=== PATIENT | female | born 1995 | race Caucasian/White ===

== ENCOUNTER → 2019-02-10 14:02 | Outpatient (CLI) | payer OTHER, SELFPAY ==
[2019-02-10 14:31] LABS: Hematocrit 43.7 % (36-46); Hemoglobin 14.4 g/dL (12.0-16.0); Mean Corpuscular HGB Conc 32.8 % (30-36); Mean Corpuscular Hemoglobin 29.9 PG (26-34); Platelet Count 277 X10^3/uL (150-400); Red Cell Distribution Width 13.2 % (11.6-14.8); White Blood Cell Count 6.7 X10^3/uL (4.5-11.0)
[2019-02-10 15:21] LABS: Alanine Aminotransferase 36 IU/L (9-52); Albumin 4.4 g/dL (3.5-5.0); Albumin Globulin Ratio 1.2 (1.0-2.8); Alkaline Phosphatase 64 U/L (38-126); Aspartate Aminotransferase 25 IU/L (14-36); BUN Creatinine Ratio 14.3 (6-22); Bilirubin Total 0.7 mg/dL (0.2-1.3); Blood Urea Nitrogen 10 mg/dL (7-17); Calcium 9.5 mg/dL (8.4-10.2); Carbon Dioxide 27 mmol/L (22-32); Chloride 101 mmol/L (98-107); Estimated Glomerular Filt Rate > 60.0 mL/min (>60); Globulin 3.7 g/dL (1.7-4.1); Glucose 90 mg/dL (70-100); HEMOLYSIS < 15 (0-50); Potassium 3.8 mmol/L (3.4-5.1); Sodium 137 mmol/L (137-145); Total Protein 8.1 g/dL (6.3-8.2)
[2019-02-10 16:05] LABS: TSH w/ Reflex to FT4 1.02 uIU/mL (0.47-4.68)
== END ==
PROVIDERS: Visit Provider Nurse Practitioner Family
DX: Z00.00 Encounter for general adult medical examination without abnormal findings (principal); F41.9 Anxiety disorder, unspecified
CPT/HCPCS: 36415; 80053; 84443; 85027

== ENCOUNTER → 2019-03-21 12:23 | Outpatient (CLI) | payer OTHER, SELFPAY ==
[2019-03-21 15:11] LABS: Urine N gonorrhoeae NOT DETECTED
[2019-03-21 15:15] LABS: Hepatitis B Surface Antigen NEGATIVE s/c (NEGATIVE)
[2019-03-21 15:18] LABS: Urine Chlamydia NOT DETECTED
[2019-03-21 15:33] LABS: HIV 1 and 2 Antibody NEGATIVE (NEGATIVE); Hep C Virus Ab w/Reflex Quant NEGATIVE s/c (NEGATIVE)
[2019-03-23 13:08] LABS: RPR Screen Nonreactive (Nonreactive)
[2019-03-23 13:33] LABS: HSV 1 IgM Screen Negative (Negative); HSV 2 IgM Screen Negative (Negative)
== END ==
PROVIDERS: Visit Provider Nurse Practitioner Family
DX: Z20.2 Contact with and (suspected) exposure to infections with a predominantly sexual mode of transmission (principal)
CPT/HCPCS: 36415; 86592; 86695; 86696; 86703; 86803; 87340; 87491; 87591

== ENCOUNTER → 2020-04-04 10:48 | Outpatient (CLI) | payer OTHER, SELFPAY ==
--- NOTE | 2020-04-04 10:49 | DI.US.S_ITS ---
LIMITED ULTRASOUND OF LEFT BREAST: 04/04/2020 CLINICAL: Focal left breast pain. Mother diagnosed with breast cancer in her 20s, in her 30s. Baseline exam. No prior exams were available for comparison. Real-time ultrasound of the left breast 6:30-9:30 o'clock region was performed. Zimmerman scale images of the real-time examination were reviewed. No significant abnormalities were seen sonographically in the left breast in the region of diffuse pain. IMPRESSION: NEGATIVE There is no sonographic evidence of malignancy. The patient may qualify for screening mammogram at less than age 40 given family history. The patient may also qualify for genetic testing and screening breast MRI. Recommend clinical risk stratification. Exam findings were conveyed to the patient by the structural welder. Patient was advised to monitor the area of pain for significant change. This exam was interpreted at Station ID: [id number]. Electronically Signed By: Kp Castro M.D. [facility] [place]/:04/04/2020 11:18:27 letter sent: Clinical Evaluation Ultrasound BI-RADS: 1 Negative
== END ==
PROVIDERS: PCP Nurse Practitioner Family; Referring Provider Nurse Practitioner Family; Visit Provider Nurse Practitioner Family
DX: N64.4 Mastodynia (principal); Z80.3 Family history of malignant neoplasm of breast
CPT/HCPCS: 76642